=== PATIENT | female | born 1975 | race Caucasian/White ===

== ENCOUNTER 2020-04-08 11:14 | Emergency (ER) | payer MEDICAID ==
[~2020-04-08] VITALS: Ht 152.4 cm; Wt 67.7 kg
[~2020-04-08 11:14] MED LIST: PREN-385 PO
[2020-04-08 11:16] VITALS: BP 138/85
--- NOTE | 2020-04-08 11:26 | NUR ---
PT C/O RIGHT SHOULDER PAIN S/P FALL LAST NIGHT. DENIES LOC, OR HEAD TRAUMA. REDUCED ROM OF RIGHT SHOULDER. NO BRUSING, ERYTHEMA, DEFORMITY, OR EDEMA NOTICED ON PT'S RIGHT SHOULDER. PATIENT STATES PAIN OF 6/10 AT THIS TIME; VSS; PATIENT POSITIONED FOR COMFORT; HOB ELEVATED; BEDRAILS UP X1; BED DOWN. ER MD MADE AWARE OF PT STATUS.
--- NOTE | 2020-04-08 11:35 | NUR ---
PT IS TAKEN TO XRAY VIA WHEELCHAIR ASSISTED BY DATABASE SECURITY ADMINISTRATOR.
--- NOTE | 2020-04-08 11:40 | NUR ---
pt returned from xray via wheelchair.
--- NOTE | 2020-04-08 11:48 | NUR ---
AGUSTIN at [facility] for mse.
--- NOTE | 2020-04-08 11:48 | NUR ---
DR RIZZO EXAMINING PT
[2020-04-08 12:29] VITALS: BP 131/81
--- NOTE | 2020-04-08 12:29 | NUR ---
Patient discharged with v/s stable. Written and verbal after care instructions given and explained. Patient alert, oriented and verbalized understanding of instructions. Ambulatory with steady gait. All questions addressed prior to discharge. ID band removed. Patient advised to follow up with PMD. Rx of ZOFRAN AND NORCO given. Patient educated on indication of medication including possible reaction and side effects. Opportunity to ask questions provided and answered.
== END 2020-04-08 12:29 | disposition home or self-care (01) ==
LOC: MED 11:14
DX: S42.131A Displaced fracture of coracoid process, right shoulder, initial encounter for closed fracture (principal); Z79.899 Other long term (current) drug therapy; Z98.890 Other specified postprocedural states; W10.8XXA Fall (on) (from) other stairs and steps, initial encounter; Y93.89 Activity, other specified; Y92.89 Other specified places as the place of occurrence of the external cause; Y99.8 Other external cause status
CPT/HCPCS: 73030; 99283

== ENCOUNTER 2022-11-29 10:29 | Emergency (ER) | payer MEDICAID ==
[~2022-11-29] VITALS: Ht 152.4 cm; Wt 75.3 kg
[2022-11-29 10:38] VITALS: BP 131/72
--- NOTE | 2022-11-29 11:02 | NUR ---
46YO FEMALE PT C/O PERIANAL ITCHINESS W/ BURNING ON WIPING [id number]. STATES INITIAL ONSET AFTER SEXUAL ACTIVITY [id number]. DENIES NEW PARTNER. PRESENTS WITH BUMPS IN PERIANAL AREA W/O DRAINAGE. REDNESS NOTED MIKI INNER THIGH. DENIES RELIEF AFTER OTC OINTMENTS. DENIES N/V/D, FEVER , CHILL, DYSURIA OR CONTACT W/ S/S. PT AAOX4, NO VISIBLE DISTRESS. HOB POSITIONED PER COMFORT. HX:DENIES NKA
[2022-11-29] MEDS ORDERED: ACYC400T14 PO (12:34)
[2022-11-29 12:47] VITALS: BP 130/80
--- NOTE | 2022-11-29 12:47 | NUR ---
Patient discharged with v/s stable. Written and verbal after care instructions ABOUT ANAL PRURITUS given and explained. Patient alert, oriented and verbalized understanding of instructions. Ambulatory with steady gait. All questions addressed prior to discharge. ID band removed. Patient advised to follow up with PMD. Rx of ZOVIRAX given. Patient educated on indication of medication including possible reaction and side effects. Opportunity to ask questions provided and answered.
== END 2022-11-29 12:47 | disposition home or self-care (01) ==
LOC: MED 10:29
DX: L29.0 Pruritus ani (principal)
CPT/HCPCS: 36415; 81025; 87252; 99283